=== PATIENT | female | born 1995 | race Caucasian/White ===

== ENCOUNTER 2016-04-21 00:29 | Emergency (ER) | payer OTHER ==
--- NOTE | 2016-04-21 03:30 | ED ORDER SUMMARY ---
..... Patient: BREANNA HARMON OrderSheet [facility] VisitID: [id number] [address] [place] [address] 20y, F Registration Date/Time: 04/21/2016 ORDER SHEET Weight: 62.5 kg (stated) Allergies: No Known Drug Allergy GENERAL ORDERS: UA-Culture if indicated Urgent (01:21 04/21/2016 Yanna Artis) (Ack 1:27 ALawrence ER Tech1) (1:33 DDavis R.N.) Urine Drug Screen Urgent (01:21 04/21/2016 Yanna Artis) (Ack 1:27 ALawrence ER Tech1) (1:33 DDavis R.N.) Urine Urgent (02:20 04/21/2016 Yanna Artis) (2:22 DDavis R.N.) (2:22 ALawrence ER Tech1) MEDICATION ORDERS: Zofran ODT PO 4 mg (NOW) (02:50 04/21/2016 Yanna Artis) (2:58 DDavis R.N.) IV FLUIDS: ORDER SHEET NOTES: [Electronically signed by Javi Mckenzie R.N. (03:40 04/21/2016)] [Electronically signed by Molina Jean Dr. (09:54 04/23/2016)] [Electronically locked/signed by Jaiv Mckenzie R.N. (03:40 04/21/2016)]
--- NOTE | 2016-04-21 03:30 | ED CLINICAL REPORT ---
Clinical Report - Physicians/Mid Levels [facility] [address] [place] [address] 04/21/2016 0:29 Patient: BREANNA HARMON Time Seen: 0215. Arrived- By private vehicle. Historian- patient. HISTORY OF PRESENT ILLNESS Chief Complaint: VOMITING. This started today and is still present. It was abrupt in onset and has been constant but is not gone now. No recent travel. She has had nausea and vomiting. No diarrhea, black stools, abdominal pain, flank pain or history of possible bad food exposure. Has not recently been camping or on antibiotics. She has had contact with a sick individual. (son). The illness is described as severe. (states she normally treats herself with a medication that also helps with anxiety and "itching". States she ran out.). Similar symptoms previously: Many times. Recent medical care: Not recently seen/assessed. REVIEW OF SYSTEMS No fever, cough, chest pain, difficulty breathing or skin rash. All systems otherwise negative, except as recorded above. PAST HISTORY See nurses notes. SOCIAL HISTORY Never smoker. No alcohol use or drug use. No recent travel. Is a local resident. ADDITIONAL NOTES The nursing notes have been reviewed. PHYSICAL EXAM Vital Signs: 04/21/2016 00:39 BP: 111/67. HR: 88. RR: 20. O2 saturation: 100%. Temp: 98.2 F. Pain level now: 5/10. Blood pressure normal. Oxygen saturation normal. Appearance: Alert. Oriented X3. No acute distress. Eyes: Pupils equal, round and reactive to light. Eyes normal inspection. ENT: Ears normal. Nose normal. Pharynx normal. Neck: Normal inspection. Neck supple. CVS: Normal heart rate and rhythm. Heart sounds normal. Pulses normal. Respiratory: No respiratory distress. Breath sounds normal. No rales, rhonchi or wheezes. Abdomen: Soft and nontender. Bowel sounds normal. No mass. Back: Normal inspection. Skin: Skin warm and dry. Normal skin color. No rash. Normal skin turgor. Extremities: Extremities exhibit normal ROM. No lower extremity edema. Neuro: Oriented X 3. No motor deficit. No sensory deficit. LABS, X-RAYS, AND EKG Laboratory Tests: UA-Culture if indicated: (TONYA: 04/21/2016 01:30) ( [facility] 04/21/2016 02:10) Final results Test Result Flag Units (Reference) URINE COLOR YELLOW URINE APPEARANCE CLEAR URINE GLUCOSE NEGATIVE (NEGATIVE) URINE BILIRUBIN NEGATIVE (NEGATIVE) URINE KETONE NEGATIVE (NEGATIVE) URINE SPECIFIC GRAVITY 1.010 (1.010-1.030) URINE PH 7.5 (5.0-8.0) URINE PROTEIN NEGATIVE (NEGATIVE) URINE UROBILINOGEN 0.2 EU/dL (0.2-1.0) URINE NITRITE NEGATIVE (NEGATIVE) URINE BLOOD NEGATIVE (NEGATIVE) URINE LEUK ESTERASE NEGATIVE (NEGATIVE) URINE RBC NONE SEEN rbc/hpf (0-1) URINE WBC 0-1 wbc/hpf (0-1) URINE EPITHELIAL CELLS 1-3 EPI/hpf (0-5) URINE BACTERIA NONE SEEN (NONE SEEN) URINE COMMENT CULT NOT INDICATED 1+ AMORPHOUS1+ MUCUSURINE CULTURES ARE SET-UP BASED ON THE FOLLOWING CRITERIA:POSITIVE NITRITEPOSITIVE LEUKOCYTE ESTERASEGREATER THAN 10 WHITE BLOOD CELLSMODERATE (2+) OR GREATER BACTERIA Urine: (TONYA: 04/21/2016 01:30) ( [facility] 04/21/2016 02:27) Final results Test Result Flag Units (Reference) URINE NEGATIVE Urine Drug Screen: (TONYA: 04/21/2016 01:30) ( [facility] 04/21/2016 02:16) Final results Test Result Flag Units (Reference) AMPHETAMINE/METHAMPHETAMINE NEGATIVE (NEGATIVE) BARBITURATE NEGATIVE (NEGATIVE) BENZODIAZEPINE NEGATIVE (NEGATIVE) CANNABINOID NEGATIVE (NEGATIVE) COCAINE NEGATIVE (NEGATIVE) ECSTASY NEGATIVE (NEGATIVE) METHADONE NEGATIVE (NEGATIVE) OPIATE NEGATIVE (NEGATIVE) The urine drug screen is a qualitative screening test fordrug overdose and abuse. All screen results should beconsidered as presumptive.Drugs screened for are as follows:BenzodiazepinesCocaineAmphetamines/MetamphetaminesTHC (Tetrahydrocannabinol)OpiatesBarbituratesEcstasyMethadonePositive results are unconfirmed. For confirmation, notifythe lab for the specimen to be sent to the reference lab.All confirmations must be performed by a differentmethodology.The ingestion of natural herbal and plant productscontaining Ephedra/Ephedra metabolites can produce in urineone or more substances capable of cross reacting withamphetamine/methamphetamine immunoassays. These testsprovide a preliminary result only. A more specificalternative chemical method must be used to obtain aconfirmed analytical result. . PROGRESS AND PROCEDURES Course of Care: the patient is a pleasant 20-year-old female presenting for evaluation of anxiety. Patient reports that she has a long history of anxiety and gets extremely nauseated when she has her anxiety. 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 "Patient states that when she starts to get her phobia, it worsens her nausea and starts a worsening cycle. Medications for the nausea have been ordered. Patient reports that she has had Zofran in the past however reports being resistant to it after long use. Patient states that she has not had for past several months and is willing to try again. The patient's workup was otherwise unremarkable. Urinalysis and test is negative. Nausea and vomiting have significantly improved after medications of been provided. Patient is a non-tender abdominal exam. Do not fill workup for her nausea is required at this time as patient is nontoxic and in no acute distress and has a reassuring abdominal exam. Additionally, do not feel patient has any signs of diabetic ketoacidosis as a urinalysis is negative for any ketones or glucose. Patient's symptoms of also been occurring for years now andis atypical presentation of her normal symptoms. Discussed with patient her workup, diagnosis, home care, follow-up, and return precautions. All questions have been answered. The patient expressed understanding of these instructions and was agreeable to them. Patient is stable for outpatient management. Do not feel further workup in the emergency department or admission to the hospital required at this time. Disposition: Discharged. Condition: good. CLINICAL IMPRESSION Vomiting with nausea. 04/21/2016 00:39 BP: 111/67. HR: 88. RR: 20. O2 saturation: 100%. Temp: 98.2 F. Pain level now: 5/10. Blood pressure normal. Oxygen saturation normal. INSTRUCTIONS Warnings: GENERAL WARNINGS: Return or contact your physician immediately if your condition worsens or changes unexpectedly, if not improving as expected, or if other problems arise. SPECIFICALLY, return if you develop pain, fever, vomiting, the inability to keep fluids down, blood in vomitus, blood in diarrhea, fainting or lightheadedness. Prescription Medications: Zofran (orally disintegrating tablets) 4 mg: take 1 orally every 8 hours as needed for nausea and vomiting. Dispense ten (10). No refill. Substitution is permissible. Hydroxyzine 50 mg: take 1 orally every 8 hours. Dispense thirty (30). No refill. (PRN nausea or anxiety) Follow-up: Return to the emergency department as needed. Follow up with your doctor in three days. Reason for referral: recheck today's concerns. Summary of care provided to patient via paper. Screening today revealed the patient's blood pressure to be in the normal range. The patient should follow up with a primary care provider for blood pressure management. Understanding of the discharge instructions verbalized by patient. Follow-up with: Jarod Chaudhari MD, [facility], , [facility], [address] [place] [address] Follow up in three days. Reason for referral: contact if you are unable to find a primary care doctor. Summary of care provided to patient via paper. (Electronically signed by Molina Jean Dr. 04/23/2016 9:54)
--- NOTE | 2016-04-21 03:30 | ED CLINICAL REPORT ---
Clinical Report - Physicians/Mid Levels [facility] [address] [place] [address] 04/21/2016 0:29 Patient: BREANNA HARMON Time Seen: 0215. Arrived- By private vehicle. Historian- patient. HISTORY OF PRESENT ILLNESS Chief Complaint: VOMITING. This started today and is still present. It was abrupt in onset and has been constant but is not gone now. No recent travel. She has had nausea and vomiting. No diarrhea, black stools, abdominal pain, flank pain or history of possible bad food exposure. Has not recently been camping or on antibiotics. She has had contact with a sick individual. (son). The illness is described as severe. (states she normally treats herself with a medication that also helps with anxiety and "itching". States she ran out.). Similar symptoms previously: Many times. Recent medical care: Not recently seen/assessed. REVIEW OF SYSTEMS No fever, cough, chest pain, difficulty breathing or skin rash. All systems otherwise negative, except as recorded above. PAST HISTORY See nurses notes. SOCIAL HISTORY Never smoker. No alcohol use or drug use. No recent travel. Is a local resident. ADDITIONAL NOTES The nursing notes have been reviewed. PHYSICAL EXAM Vital Signs: 04/21/2016 00:39 BP: 111/67. HR: 88. RR: 20. O2 saturation: 100%. Temp: 98.2 F. Pain level now: 5/10. Blood pressure normal. Oxygen saturation normal. Appearance: Alert. Oriented X3. No acute distress. Eyes: Pupils equal, round and reactive to light. Eyes normal inspection. ENT: Ears normal. Nose normal. Pharynx normal. Neck: Normal inspection. Neck supple. CVS: Normal heart rate and rhythm. Heart sounds normal. Pulses normal. Respiratory: No respiratory distress. Breath sounds normal. No rales, rhonchi or wheezes. Abdomen: Soft and nontender. Bowel sounds normal. No mass. Back: Normal inspection. Skin: Skin warm and dry. Normal skin color. No rash. Normal skin turgor. Extremities: Extremities exhibit normal ROM. No lower extremity edema. Neuro: Oriented X 3. No motor deficit. No sensory deficit. LABS, X-RAYS, AND EKG Laboratory Tests: UA-Culture if indicated: (TONYA: 04/21/2016 01:30) ( [facility] 04/21/2016 02:10) Final results Test Result Flag Units (Reference) URINE COLOR YELLOW URINE APPEARANCE CLEAR URINE GLUCOSE NEGATIVE (NEGATIVE) URINE BILIRUBIN NEGATIVE (NEGATIVE) URINE KETONE NEGATIVE (NEGATIVE) URINE SPECIFIC GRAVITY 1.010 (1.010-1.030) URINE PH 7.5 (5.0-8.0) URINE PROTEIN NEGATIVE (NEGATIVE) URINE UROBILINOGEN 0.2 EU/dL (0.2-1.0) URINE NITRITE NEGATIVE (NEGATIVE) URINE BLOOD NEGATIVE (NEGATIVE) URINE LEUK ESTERASE NEGATIVE (NEGATIVE) URINE RBC NONE SEEN rbc/hpf (0-1) URINE WBC 0-1 wbc/hpf (0-1) URINE EPITHELIAL CELLS 1-3 EPI/hpf (0-5) URINE BACTERIA NONE SEEN (NONE SEEN) URINE COMMENT CULT NOT INDICATED 1+ AMORPHOUS1+ MUCUSURINE CULTURES ARE SET-UP BASED ON THE FOLLOWING CRITERIA:POSITIVE NITRITEPOSITIVE LEUKOCYTE ESTERASEGREATER THAN 10 WHITE BLOOD CELLSMODERATE (2+) OR GREATER BACTERIA Urine: (TONYA: 04/21/2016 01:30) ( [facility] 04/21/2016 02:27) Final results Test Result Flag Units (Reference) URINE NEGATIVE Urine Drug Screen: (TONAY: 04/21/2016 01:30) ( [facility] 04/21/2016 02:16) Final results Test Result Flag Units (Reference) AMPHETAMINE/METHAMPHETAMINE NEGATIVE (NEGATIVE) BARBITURATE NEGATIVE (NEGATIVE) BENZODIAZEPINE NEGATIVE (NEGATIVE) CANNABINOID NEGATIVE (NEGATIVE) COCAINE NEGATIVE (NEGATIVE) ECSTASY NEGATIVE (NEGATIVE) METHADONE NEGATIVE (NEGATIVE) OPIATE NEGATIVE (NEGATIVE) The urine drug screen is a qualitative screening test fordrug overdose and abuse. All screen results should beconsidered as presumptive.Drugs screened for are as follows:BenzodiazepinesCocaineAmphetamines/MetamphetaminesTHC (Tetrahydrocannabinol)OpiatesBarbituratesEcstasyMethadonePositive results are unconfirmed. For confirmation, notifythe lab for the specimen to be sent to the reference lab.All confirmations must be performed by a differentmethodology.The ingestion of natural herbal and plant productscontaining Ephedra/Ephedra metabolites can produce in urineone or more substances capable of cross reacting withamphetamine/methamphetamine immunoassays. These testsprovide a preliminary result only. A more specificalternative chemical method must be used to obtain aconfirmed analytical result. . PROGRESS AND PROCEDURES Course of Care: the patient is a pleasant 20-year-old female presenting for evaluation of anxiety. Patient reports that she has a long history of anxiety and gets extremely nauseated when she has her anxiety. 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 "Patient states that when she starts to get her phobia, it worsens her nausea and starts a worsening cycle. Medications for the nausea have been ordered. Patient reports that she has had Zofran in the past however reports being resistant to it after long use. Patient states that she has not had for past several months and is willing to try again. The patient's workup was otherwise unremarkable. Urinalysis and test is negative. Nausea and vomiting have significantly improved after medications of been provided. Patient is a non-tender abdominal exam. Do not fill workup for her nausea is required at this time as patient is nontoxic and in no acute distress and has a reassuring abdominal exam. Additionally, do not feel patient has any signs of diabetic ketoacidosis as a urinalysis is negative for any ketones or glucose. Patient's symptoms of also been occurring for years now andis atypical presentation of her normal symptoms. Discussed with patient her workup, diagnosis, home care, follow-up, and return precautions. All questions have been answered. The patient expressed understanding of these instructions and was agreeable to them. Patient is stable for outpatient management. Do not feel further workup in the emergency department or admission to the hospital required at this time. Disposition: Discharged. Condition: good. CLINICAL IMPRESSION Vomiting with nausea. 04/21/2016 00:39 BP: 111/67. HR: 88. RR: 20. O2 saturation: 100%. Temp: 98.2 F. Pain level now: 5/10. Blood pressure normal. Oxygen saturation normal. INSTRUCTIONS Warnings: GENERAL WARNINGS: Return or contact your physician immediately if your condition worsens or changes unexpectedly, if not improving as expected, or if other problems arise. SPECIFICALLY, return if you develop pain, fever, vomiting, the inability to keep fluids down, blood in vomitus, blood in diarrhea, fainting or lightheadedness. Prescription Medications: Zofran (orally disintegrating tablets) 4 mg: take 1 orally every 8 hours as needed for nausea and vomiting. Dispense ten (10). No refill. Substitution is permissible. Hydroxyzine 50 mg: take 1 orally every 8 hours. Dispense thirty (30). No refill. (PRN nausea or anxiety) Follow-up: Return to the emergency department as needed. Follow up with your doctor in three days. Reason for referral: recheck today's concerns. Summary of care provided to patient via paper. Screening today revealed the patient's blood pressure to be in the normal range. The patient should follow up with a primary care provider for blood pressure management. Understanding of the discharge instructions verbalized by patient. Follow-up with: Jarod Chaudhari MD, [facility], , [facility], [address] [place] [address] Follow up in three days. Reason for referral: contact if you are unable to find a primary care doctor. Summary of care provided to patient via paper. (Electronically signed by Molina Jean Dr. 04/23/2016 9:54)
--- NOTE | 2016-04-21 03:30 | ED NURSING NOTES ---
Clinical Report - Nurses [facility] [place] [address] [place] [address] 04/21/2016 0:29 Patient: BREANNA HARMON TRIAGE Triage time 00:40. Acuity: LEVEL 4. Chief Complaint: ANXIETY. Alert. SEPSIS SCREEN: Sepsis Screen. Negative (no infection suspected/documented). ERICA COMA SCORE: [place] Coma Scale: 15- eyes open spontaneously (4); best verbal response- oriented x 4 (5); best motor response- obeys commands (6). --00:45 Arnold Chery R.N. 00:39 04/21/16. BP: 111/67. HR: 88. RR: 20 (unlabored). O2 saturation: 100% on room air. Temp: 98.2 F. Pain level now: 5/10. Additional comments: generalize body aches. --00:45 Arnold Chery R.N. Weight: 62.5 kg stated. Height/Length: 68 inches Per Patient. BMI: 21. --00:49 Arnold Chery R.N. Allergies No Known Drug Allergy. --00:41 Arnold Chery R.N. History Historian: patient. Onset: today. Onset. (3 hours ago). ( anxiety attack starting 3 hours ago, and states that it started because of nausea, she states having a fear of nausea). She has had anxiety. SOCIAL HX: Never smoker. No alcohol use or drug use. SELF HARM ASSESSMENT: A self harm assessment was performed. The patient answered "no" to the question "Have you recently felt down, depressed, or hopeless?", "Have you noticed less interest or pleasure in doing things?", "Do you have thoughts of harming or killing yourself?", "Are you here because you tried to hurt yourself?", "Have you ever tried to hurt yourself before today?", "Have you recently had thoughts about harming or killing others?" and "Do you have any dangerous items in your possession?". FALL RISK ASSESSMENT: Fall risk assessment completed. No fall risk identified. NUTRITIONAL RISK ASSESSMENT: The nutritional risk assessment revealed no deficiencies. LEARNING NEEDS ASSESSMENT: The learning needs assessment revealed no barriers. FUNCTIONAL ASSESSMENT: Functional assessment performed: independent with the activities of daily living. SKIN INTEGRITY ASSESSMENT: Skin integrity risk assessment completed. No skin integrity risk identified. --00:45 Arnold Chery R.N. PROBLEMS: Nausea. Anxiety Reaction. Gastroenteritis. Constipation. Gestational diabetes mellitus. Eustachian Tube Dysfunction. Viral Disease. . Sprain. Lymphadenitis. Tonsillitis. Immunizations. LNMP - Last Normal Menstrual Period. --00:42 Arnold Chery R.N. ADDITIONAL SURGERIES: Adenoidectomy. Tympanostomy Tubes. --00:42 Arnold Chery R.N. Interventions ID band on patient. To treatment room. --00:45 Arnold Chery R.N. PHYSICAL ASSESSMENT GENERAL / NEURO / PSYCH: Alert. Oriented X 4. Appears anxious. (cooperative, denies SI). Speech within normal limits. Good eye contact. Patient appears well-nourished and neat and clean. RESPIRATORY: Respirations not labored. SKIN: Skin intact. Skin is warm and dry. Skin color is within normal limits. --00:46 Arnold Chery R.N. NURSING PROGRESS NOTES Reassurance given. GENERAL / NEURO / PSYCH: Alert. Two patient identifiers checked. Call light placed in reach. Side rails up x 1. Bed placed in lowest position. Brakes of bed on. Patient ready for evaluation- chart flagged. Patient waiting for evaluation. --00:45 Arnold Chery R.N. 02:58 04/21/2016 Zofran ODT (Ondansetron) PO Oral Disintegrating Tablets 4 mg given. Allergies verified and confirmed 5 rights. --02:58 Arnold Chery R.N. ( Patient resting in bed, states "I'm trying to be alright."). --02:59 Arnold Chery R.N. DISPOSITION / DISCHARGE Departure time: 03:40. Condition at departure: improved. No learning barriers present. Discharge instructions provided and reviewed with the patient. Reviewed medication(s) side effects, precautions, dosing and course information. Prescription(s) given to the patient (zofran, hydroxyzine). Reviewed referrals (Dr. Chaudhari). Patient verbalized understanding. Written instructions provided in Vietnamese. The patient was discharged by the physician. She was discharged home and unaccompanied at time of discharge. She left the Emergency Department ambulatory and via private vehicle. Patient driving. --03:40 Javi Mckenzie R.N. 03:36 04/21/16. BP: 110/65. HR: 79. RR: 15. O2 saturation: 100%. Pain level now 0/10. --03:40 Javi Mckenzie R.N. Locked/Released at 04/21/2016 3:40 by Javi Mckenzie R.N.
--- NOTE | 2016-04-21 03:30 | ED ORDER SUMMARY ---
..... Patient: BREANNA HARMON OrderSheet [facility] VisitID: [id number] [address] [place] [address] 20y, F Registration Date/Time: 04/21/2016 ORDER SHEET Weight: 62.5 kg (stated) Allergies: No Known Drug Allergy GENERAL ORDERS: UA-Culture if indicated Urgent (01:21 04/21/2016 Yanna Artis) (Ack 1:27 ALawrence ER Tech1) (1:33 DDavis R.N.) Urine Drug Screen Urgent (01:21 04/21/2016 Yanna Artis) (Ack 1:27 ALawrence ER Tech1) (1:33 DDavis R.N.) Urine Urgent (02:20 04/21/2016 Yanna Artis) (2:22 DDavis R.N.) (2:22 ALawrence ER Tech1) MEDICATION ORDERS: Zofran ODT PO 4 mg (NOW) (02:50 04/21/2016 Yanna Artis) (2:58 DDavis R.N.) IV FLUIDS: ORDER SHEET NOTES: [Electronically signed by Javi Mckenzie R.N. (03:40 04/21/2016)] [Electronically signed by Molina Jean Dr. (09:54 04/23/2016)] [Electronically locked/signed by Javi Mckenzie R.N. (03:40 04/21/2016)]
--- NOTE | 2016-04-23 09:54 | ED DISCHARGE INSTRUCTIONS ---
Patient: BREANNA HARMON General Instructions [facility] VisitID: [id number] [place] [address] 20y, F Registration Date/Time: 04/21/2016 Vomiting with nausea. 04/21/2016 00:39 BP: 111/67. HR: 88. RR: 20. O2 saturation: 100%. Temp: 98.2 F. Pain level now: 5/10. Blood pressure normal. Oxygen saturation normal. INSTRUCTIONS Warnings: GENERAL WARNINGS: Return or contact your physician immediately if your condition worsens or changes unexpectedly, if not improving as expected, or if other problems arise. SPECIFICALLY, return if you develop pain, fever, vomiting, the inability to keep fluids down, blood in vomitus, blood in diarrhea, fainting or lightheadedness. Prescription Medications: Zofran (orally disintegrating tablets) 4 mg: take 1 orally every 8 hours as needed for nausea and vomiting. Dispense ten (10). No refill. Substitution is permissible. Hydroxyzine 50 mg: take 1 orally every 8 hours. Dispense thirty (30). No refill. (PRN nausea or anxiety) Follow-up: Return to the emergency department as needed. Follow up with your doctor in three days. Reason for referral: recheck today's concerns. Summary of care provided to patient via paper. Screening today revealed the patient's blood pressure to be in the normal range. The patient should follow up with a primary care provider for blood pressure management. Understanding of the discharge instructions verbalized by patient. Follow-up with: Jarod Chaudhari MD, [facility], , [facility], [address] [place] [address] Follow up in three days. Reason for referral: contact if you are unable to find a primary care doctor. Summary of care provided to patient via paper. ADDITIONAL INFORMATION Ondansetron Oral disintegrating tablet What is this medicine? ONDANSETRON (on MAYRA se tessa) is used to treat nausea and vomiting caused by chemotherapy. It is also used to prevent or treat nausea and vomiting after surgery. How should I use this medicine? These tablets are made to dissolve in the mouth. Do not try to push the tablet through the foil backing. With dry hands, peel away the foil backing and gently remove the tablet. Place the tablet in the mouth and allow it to dissolve, then swallow. While you may take these tablets with water, it is not necessary to do so. Talk to your thermograph operator regarding the use of this medicine in children. Special care may be needed. What side effects may I notice from receiving this medicine? Side effects that you should report to your doctor or health resident care associate as soon as possible: allergic reactions like skin rash, itching or hives, swelling of the face, lips, or tongue breathing problems dizziness fast or irregular heartbeat feeling faint or lightheaded, falls fever and chills swelling of the hands and feet tightness in the chest Side effects that usually do not require medical attention (report to your doctor or health resident care associate if they continue or are bothersome): constipation or diarrhea headache What may interact with this medicine? Do not take this medicine with any of the following medications: -apomorphine -cisapride -dofetilide -dronedarone -pimozide -thioridazine -ziprasidone This medicine may also interact with the following medications: -carbamazepine -phenytoin -rifampicin -tramadol -other medicines that prolong the QT interval (cause an abnormal heart rhythm) What if I miss a dose? If you miss a dose, take it as soon as you can. If it is almost time for your next dose, take only that dose. Do not take double or extra doses. Where should I keep my medicine? Keep out of the reach of children. Store between 2 and 30 degrees C (36 and 86 degrees F). Throw away any unused medicine after the expiration date. What should I tell my health care provider before I take this medicine? They need to know if you have any of these conditions: heart disease history of irregular heartbeat liver disease low levels of magnesium or potassium in the blood an unusual or allergic reaction to ondansetron, granisetron, other medicines, foods, dyes, or preservatives or trying to get breast-feeding What should I watch for while using this medicine? Check with your doctor or health resident care associate as soon as you can if you have any sign of an allergic reaction. Hydroxyzine Pamoate Oral capsule What is this medicine? HYDROXYZINE (tavon DROX i zeen) is an antihistamine. This medicine is used to treat allergy symptoms. It is also used to treat anxiety and tension. This medicine can be used with other medicines to induce sleep before surgery. How should I use this medicine? Take this medicine by mouth with a full glass of water. Follow the directions on the prescription label. You may take this medicine with food or on an empty stomach. Take your medicine at regular intervals. Do not take your medicine more often than directed. Talk to your thermograph operator regarding the use of this medicine in children. Special care may be needed. While this drug may be prescribed for children as young as 6 years of age for selected conditions, precautions do apply. Patients over 65 years old may have a stronger reaction and need a smaller dose. What side effects may I notice from receiving this medicine? Side effects that you should report to your doctor or health resident care associate as soon as possible: fast or irregular heartbeat difficulty passing urine seizures slurred speech or confusion tremor Side effects that usually do not require medical attention (report to your doctor or health resident care associate if they continue or are bothersome): constipation drowsiness fatigue headache stomach upset What may interact with this medicine? alcohol barbiturate medicines for sleep or seizures medicines for colds, allergies medicines for depression, anxiety, or emotional disturbances medicines for pain medicines for sleep muscle relaxants What if I miss a dose? If you miss a dose, take it as soon as you can. If it is almost time for your next dose, take only that dose. Do not take double or extra doses. Where should I keep my medicine? Keep out of the reach of children. Store at room temperature between 15 and 30 degrees C (59 and 86 degrees F). Keep container tightly closed. Throw away any unused medicine after the expiration date. What should I tell my health care provider before I take this medicine? They need to know if you have any of these conditions: any chronic illness difficulty passing urine glaucoma heart disease kidney disease liver disease lung disease an unusual or allergic reaction to hydroxyzine, cetirizine, other medicines, foods, dyes, or preservatives or trying to get breast-feeding What should I watch for while using this medicine? Tell your doctor or health resident care associate if your symptoms do not improve. You may get drowsy or dizzy. Do not drive, use machinery, or do anything that needs mental alertness until you know how this medicine affects you. Do not stand or sit up quickly, especially if you are an older patient. This reduces the risk of dizzy or fainting spells. Alcohol may interfere with the effect of this medicine. Avoid alcoholic drinks. Your mouth may get dry. Chewing sugarless gum or sucking hard candy, and drinking plenty of water may help. Contact your doctor if the problem does not go away or is severe. This medicine may cause dry eyes and blurred vision. If you wear contact lenses you may feel some discomfort. Lubricating drops may help. See your eye doctor if the problem does not go away or is severe. If you are receiving skin tests for allergies, tell your doctor you are using this medicine. You have been given the following additional information: Ondansetron Oral disintegrating tablet Hydroxyzine Pamoate Oral capsule (Electronically signed by Molina Jean Dr. 04/23/2016 9:54)
--- NOTE | 2016-04-23 09:54 | ED DISCHARGE INSTRUCTIONS ---
Patient: BREANNA HARMON General Instructions [facility] VisitID: [id number] [place] [address] 20y, F Registration Date/Time: 04/21/2016 Vomiting with nausea. 04/21/2016 00:39 BP: 111/67. HR: 88. RR: 20. O2 saturation: 100%. Temp: 98.2 F. Pain level now: 5/10. Blood pressure normal. Oxygen saturation normal. INSTRUCTIONS Warnings: GENERAL WARNINGS: Return or contact your physician immediately if your condition worsens or changes unexpectedly, if not improving as expected, or if other problems arise. SPECIFICALLY, return if you develop pain, fever, vomiting, the inability to keep fluids down, blood in vomitus, blood in diarrhea, fainting or lightheadedness. Prescription Medications: Zofran (orally disintegrating tablets) 4 mg: take 1 orally every 8 hours as needed for nausea and vomiting. Dispense ten (10). No refill. Substitution is permissible. Hydroxyzine 50 mg: take 1 orally every 8 hours. Dispense thirty (30). No refill. (PRN nausea or anxiety) Follow-up: Return to the emergency department as needed. Follow up with your doctor in three days. Reason for referral: recheck today's concerns. Summary of care provided to patient via paper. Screening today revealed the patient's blood pressure to be in the normal range. The patient should follow up with a primary care provider for blood pressure management. Understanding of the discharge instructions verbalized by patient. Follow-up with: Jarod Chaudhari MD, [facility], , [facility], [address] [place] [address] Follow up in three days. Reason for referral: contact if you are unable to find a primary care doctor. Summary of care provided to patient via paper. ADDITIONAL INFORMATION Ondansetron Oral disintegrating tablet What is this medicine? ONDANSETRON (on MAYRA se tessa) is used to treat nausea and vomiting caused by chemotherapy. It is also used to prevent or treat nausea and vomiting after surgery. How should I use this medicine? These tablets are made to dissolve in the mouth. Do not try to push the tablet through the foil backing. With dry hands, peel away the foil backing and gently remove the tablet. Place the tablet in the mouth and allow it to dissolve, then swallow. While you may take these tablets with water, it is not necessary to do so. Talk to your development chemist regarding the use of this medicine in children. Special care may be needed. What side effects may I notice from receiving this medicine? Side effects that you should report to your doctor or health senior resident care director as soon as possible: allergic reactions like skin rash, itching or hives, swelling of the face, lips, or tongue breathing problems dizziness fast or irregular heartbeat feeling faint or lightheaded, falls fever and chills swelling of the hands and feet tightness in the chest Side effects that usually do not require medical attention (report to your doctor or health senior resident care director if they continue or are bothersome): constipation or diarrhea headache What may interact with this medicine? Do not take this medicine with any of the following medications: -apomorphine -cisapride -dofetilide -dronedarone -pimozide -thioridazine -ziprasidone This medicine may also interact with the following medications: -carbamazepine -phenytoin -rifampicin -tramadol -other medicines that prolong the QT interval (cause an abnormal heart rhythm) What if I miss a dose? If you miss a dose, take it as soon as you can. If it is almost time for your next dose, take only that dose. Do not take double or extra doses. Where should I keep my medicine? Keep out of the reach of children. Store between 2 and 30 degrees C (36 and 86 degrees F). Throw away any unused medicine after the expiration date. What should I tell my health care provider before I take this medicine? They need to know if you have any of these conditions: heart disease history of irregular heartbeat liver disease low levels of magnesium or potassium in the blood an unusual or allergic reaction to ondansetron, granisetron, other medicines, foods, dyes, or preservatives or trying to get breast-feeding What should I watch for while using this medicine? Check with your doctor or health senior resident care director as soon as you can if you have any sign of an allergic reaction. Hydroxyzine Pamoate Oral capsule What is this medicine? HYDROXYZINE (tavon DROX i zeen) is an antihistamine. This medicine is used to treat allergy symptoms. It is also used to treat anxiety and tension. This medicine can be used with other medicines to induce sleep before surgery. How should I use this medicine? Take this medicine by mouth with a full glass of water. Follow the directions on the prescription label. You may take this medicine with food or on an empty stomach. Take your medicine at regular intervals. Do not take your medicine more often than directed. Talk to your development chemist regarding the use of this medicine in children. Special care may be needed. While this drug may be prescribed for children as young as 6 years of age for selected conditions, precautions do apply. Patients over 65 years old may have a stronger reaction and need a smaller dose. What side effects may I notice from receiving this medicine? Side effects that you should report to your doctor or health senior resident care director as soon as possible: fast or irregular heartbeat difficulty passing urine seizures slurred speech or confusion tremor Side effects that usually do not require medical attention (report to your doctor or health senior resident care director if they continue or are bothersome): constipation drowsiness fatigue headache stomach upset What may interact with this medicine? alcohol barbiturate medicines for sleep or seizures medicines for colds, allergies medicines for depression, anxiety, or emotional disturbances medicines for pain medicines for sleep muscle relaxants What if I miss a dose? If you miss a dose, take it as soon as you can. If it is almost time for your next dose, take only that dose. Do not take double or extra doses. Where should I keep my medicine? Keep out of the reach of children. Store at room temperature between 15 and 30 degrees C (59 and 86 degrees F). Keep container tightly closed. Throw away any unused medicine after the expiration date. What should I tell my health care provider before I take this medicine? They need to know if you have any of these conditions: any chronic illness difficulty passing urine glaucoma heart disease kidney disease liver disease lung disease an unusual or allergic reaction to hydroxyzine, cetirizine, other medicines, foods, dyes, or preservatives or trying to get breast-feeding What should I watch for while using this medicine? Tell your doctor or health senior resident care director if your symptoms do not improve. You may get drowsy or dizzy. Do not drive, use machinery, or do anything that needs mental alertness until you know how this medicine affects you. Do not stand or sit up quickly, especially if you are an older patient. This reduces the risk of dizzy or fainting spells. Alcohol may interfere with the effect of this medicine. Avoid alcoholic drinks. Your mouth may get dry. Chewing sugarless gum or sucking hard candy, and drinking plenty of water may help. Contact your doctor if the problem does not go away or is severe. This medicine may cause dry eyes and blurred vision. If you wear contact lenses you may feel some discomfort. Lubricating drops may help. See your eye doctor if the problem does not go away or is severe. If you are receiving skin tests for allergies, tell your doctor you are using this medicine. You have been given the following additional information: Ondansetron Oral disintegrating tablet Hydroxyzine Pamoate Oral capsule (Electronically signed by Molina Jean Dr. 04/23/2016 9:54)
--- NOTE | 2016-04-23 09:55 | ED MED RECONCILIATION SUMMARY ---
Patient: BREANNA HARMON Medication Reconciliation Report [facility] VisitID: [id number] [address] [place] [address] 20y, F Registration Date/Time: 04/21/2016 Weight: 62.5 kg Height/Length: 68 in. BMI: 21.0 ALLERGIES: No Known Drug Allergy The patient's Home Medications are listed below: Not obtained. The source(s) of the original Home Medication information: Not obtained. The following Medications were given to the patient in the Emergency Department: Zofran ODT [PO] PO 4 mg, administered: 04/21/2016 2:58:00 AM The following Medications were prescribed to the patient: Zofran (orally disintegrating tablets) 4 mg: take 1 orally every 8 hours as needed for nausea and vomiting. Dispense ten (10). No refill. Substitution is permissible. -- Molina Jean Dr. Hydroxyzine 50 mg: take 1 orally every 8 hours. Dispense thirty (30). No refill.(PRN nausea or anxiety) -- Molina Jean Dr.
--- NOTE | 2016-04-23 09:55 | ED MAR SUMMARY ---
..... Medication Administration Record [facility] [address] [place] [address] Patient: BREANNA HARMON Visit ID: [id number] 20y, F Weight: 62.5 kg Height/Length: 68 in BMI: 21 ALLERGIES: No Known Drug Allergy Given 02:58 04/21/2016 Arnold Chery R.N. Medication Administered: ZOFRAN ODT [PO] (ONDANSETRON), Dose: 4 mg Oral Disintegrating Tablets PO. Medication Ordered: Zofran ODT PO 4 mg (NOW).
--- NOTE | 2016-04-23 09:55 | ED MED RECONCILIATION SUMMARY ---
Patient: BREANNA HARMON Medication Reconciliation Report [facility] VisitID: [id number] [address] [place] [address] 20y, F Registration Date/Time: 04/21/2016 Weight: 62.5 kg Height/Length: 68 in. BMI: 21.0 ALLERGIES: No Known Drug Allergy The patient's Home Medications are listed below: Not obtained. The source(s) of the original Home Medication information: Not obtained. The following Medications were given to the patient in the Emergency Department: Zofran ODT [PO] PO 4 mg, administered: 04/21/2016 2:58:00 AM The following Medications were prescribed to the patient: Zofran (orally disintegrating tablets) 4 mg: take 1 orally every 8 hours as needed for nausea and vomiting. Dispense ten (10). No refill. Substitution is permissible. -- Molina Jean Dr. Hydroxyzine 50 mg: take 1 orally every 8 hours. Dispense thirty (30). No refill.(PRN nausea or anxiety) -- Molina Jean Dr.
--- NOTE | 2016-04-23 09:55 | ED MAR SUMMARY ---
..... Medication Administration Record [facility] [address] [place] [address] Patient: BREANNA HARMON Visit ID: [id number] 20y, F Weight: 62.5 kg Height/Length: 68 in BMI: 21 ALLERGIES: No Known Drug Allergy Given 02:58 04/21/2016 Arnold Cheyr R.N. Medication Administered: ZOFRAN ODT [PO] (ONDANSETRON), Dose: 4 mg Oral Disintegrating Tablets PO. Medication Ordered: Zofran ODT PO 4 mg (NOW).
== END 2016-04-21 03:30 | disposition home or self-care (01) ==
LOC: ED SRH 00:29
DX: R11.2 Nausea with vomiting, unspecified (principal)
CPT/HCPCS: 90004; 92760; 92761; 92762; 92763; 92764; 92765; 92766; 92767; 93070

== ENCOUNTER 2016-06-17 21:53 | Emergency (ER) | payer OTHER ==
--- NOTE | 2016-06-17 22:58 | ED NURSING NOTES ---
Clinical Report - Nurses [facility] [address] [place] [address] 06/17/2016 21:54 Patient: BREANNA HARMON TRIAGE Triage time 2200. Acuity: LEVEL 3. Chief Complaint: ANXIETY and (Panic). Alert. No acute distress. (Anxious, tearful). --22:12 Isa Tenorio 22:07 06/17/16. BP: 146/82. HR: 99. RR: 28. O2 saturation: 98%. Temp: 97.7 F. Pain level now 4/10. --22:12 Isa Tenorio. Weight: 65.7 kg. Height/Length: 68 inches. BMI: 22. --22:07 Isa Tenorio. Medications HydrOXYzine HCl Oral. --22:08 Isa Tenorio Mirena Intrauterine. --22:08 Isa Tenorio. Medication/allergy information source: the patient. --22:12 Isa Tenorio. Allergies No Known Drug Allergy. --22:08 Isa Tenorio. History Arrived by private vehicle. Historian: patient. Accompanied by (elias). Onset: today. 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 Onset. (1999). ( Pt sts she is having a severe panic attack, sudden onset, pt sts she has anxiety episodes 1-2 times a day and full panic 1-2 times a month, pt denies having a PCP, sts she got meds from a walk in clinic). ( Pt also c/o nausea and low mid abd pain). 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 PAST MEDICAL HX: Denies current . SOCIAL HX: Smoker- current status unknown. --22:12 Isa Tenorio. PROBLEMS: Vomiting. Nausea. Anxiety Reaction. Gastroenteritis. Constipation. Gestational diabetes mellitus. Eustachian Tube Dysfunction. Lymphadenitis. Tonsillitis. --22: Isa Tenorio. ADDITIONAL SURGERIES: Adenoidectomy. Tympanostomy Tubes. --22:09 Isa Tenorio. Interventions ID band on patient. To treatment room. --22:12 Isa Tenorio. PHYSICAL ASSESSMENT Ambulatory to room. GENERAL / NEURO / PSYCH: Alert. Oriented X 4. Appears anxious and in distress. Speech within normal limits. Appears anxious, restless, agitated and tearful. Good eye contact. Patient appears well-nourished and neat and clean. RESPIRATORY: Respirations not labored. Breath sounds within normal limits. CVS: Normal heart rate and rhythm. Capillary refill less than 2 seconds. GI / : Abdomen soft. Abdominal tenderness. Bowel sounds within normal limits. SKIN: Skin intact. Skin is warm and dry. Skin color is within normal limits. --22:13 Isa Tenorio. NURSING PROGRESS NOTES Patient gowned. Reassurance given. Bed placed in lowest position. Brakes of bed on. Patient ready for evaluation- chart flagged. --22:13 Isa Tenorio 22:15 06/17/2016 Zofran ODT (Ondansetron) PO 4 mg given. Allergies verified and confirmed 5 rights. --22:15 Isa Tenorio 22:20 06/17/2016 Ativan (LORazepam) PO 2 mg given. Allergies verified, confirmed 5 rights and sedative warning given to the patient's family. --22:20 Isa Tenorio 22:21 06/17/2016 Phenergan (Promethazine HCl) IM 25 mg given. Given in the right gluteus elizabeth. Allergies verified, confirmed 5 rights and sedative warning given to the patient's family. --22:21 Isa Tenorio Reassessment after medication administered. She is calm and resting quietly and has had no adverse reaction. Overall patient status is improved- she states feels better. --23:10 Isa Tenorio. DISPOSITION / DISCHARGE Departure time: 2309. Condition at departure: improved and stable. No learning barriers present. Discharge instructions provided and reviewed with the patient and spouse. Reviewed medication(s). Patient and spouse verbalized understanding. Written instructions provided in Kinyarwanda. The patient was discharged by the physician assistant strength coach. She was discharged home and accompanied by spouse. She left the Emergency Department ambulatory and via private vehicle. Spouse driving. --23:11 Isa Tenorio 23:10 06/17/16. BP: 110/70. HR: 77. RR: 16. O2 saturation: 100%. --23:11 Isa Tenorio. Locked/Released at 06/17/2016 23:11 by Isa Tenorio,
--- NOTE | 2016-06-17 22:58 | ED ORDER SUMMARY ---
..... Patient: BREANNA HARMON OrderSheet [facility] VisitID: [id number] [address] [place] [address] 20y, F Registration Date/Time: 06/17/2016 ORDER SHEET Weight: 65.7 kg Allergies: No Known Drug Allergy GENERAL ORDERS: MEDICATION ORDERS: Phenergan IM 25 mg (HIGH ALERT MEDICATION, NOW) (22:13 06/17/2016 Marvaleeverette P.A.-C) (Ack 22:14 [facility] Ativan PO 2 mg (HIGH ALERT MEDICATION) (22:06/17/2016 Leeann P.A.-C) (Ack 22:[facility] ([facility] Zofran ODT PO 4 mg (NOW) (22:14 06/17/2016 Prabhakar per protocol) (22:[facility] IV FLUIDS: ORDER SHEET NOTES: [Electronically signed by Isa Tenorio (23:11 06/17/2016)] [Electronically signed by Danii SheaARebekah-Ashly (23:52 06/17/2016)] [Electronically locked/signed by Isa Tenorio (23:11 06/17/2016)]
--- NOTE | 2016-06-17 22:58 | ED CLINICAL REPORT ---
Clinical Report - Physicians/Mid Levels [facility] [address] [place] [address] 06/17/2016 21:54 Patient: BREANNA HARMON Time Seen: 23:39 Jun 17 2016. Arrived- By private vehicle. Historian- patient (SO). HISTORY OF PRESENT ILLNESS Chief Complaint: PALPITATIONS. This started just prior to arrival and is still present. ( Hyperventilating, and difficulty with breathing and gassy for air, paresthesias 2 hours prior to arrival. [facility] Patient with history of similar events. Previously was in counseling while in high school, however has not been seen by primary care provider or psychiatrist, as she has a long hours and hasn't been only seen at urgent care clinics. Patient has an IUD present.). REVIEW OF SYSTEMS No fever, chills, cough, sore throat or black stools. All systems otherwise negative, except as recorded above. SOCIAL HISTORY Alcohol use. No drug use. ADDITIONAL NOTES The nursing notes have been reviewed. PHYSICAL EXAM Vital Signs: 06/17/2016 22:07 BP: 146/82. HR: 99. RR: 28. O2 saturation: 98%. Temp: 97.7 F. Appearance: Alert. Anxious. Patient in apparent distress. Eyes: Eyes normal inspection. ENT: Ears normal. Nose normal. Neck: Normal inspection. No meningeal signs. CVS: Normal heart rate and rhythm. Respiratory: No respiratory distress. Breath sounds normal. Chest nontender. Skin: Skin warm. Normal skin color. Neuro: Oriented X 3. PROGRESS AND PROCEDURES Course of Care: Patient in the emergency department with signs of acute hyperventilation syndrome, panic attack, with history of similar. Medications now asleep resting comfortably . URGED for her to f/u and establish pcp. NO SOB/ no chest pain. 06/17/2016 23:10 BP: 110/70. HR: 77. RR: 16. O2 saturation: 100%. Patient is stable. Patient/family counseled. Disposition: Discharged. Condition: good. CLINICAL IMPRESSION Anxiety reaction. INSTRUCTIONS Avoid stimulants (such as cigarettes, coffee, cold medicines, sinus medicines, street drugs). ([facility]: Address: [address] [place] [address] [facility] Address: [address] [place] [address] ). Warnings: SEDATIVE MEDICATION: You were given sedative medication during your visit. Do not drive or operate dangerous machinery for 6 hours. Prescription Medications: Zofran (orally disintegrating tablets) 4 mg: take 1 orally every 6 hours for 3 days as needed for nausea. Dispense ten (10). No refill. Substitution is permissible. Ativan take 1 orally every 8 hours for 3 days as needed for anxiety. No refill. Substitution is permissible. (#9) Follow-up: Follow up with your doctor please establish Primary Care in three days. Understanding of the discharge instructions verbalized by patient and family. (Electronically signed by Danii Shea P.A.-C 06/17/2016 23:52)
--- NOTE | 2016-06-17 22:58 | ED ORDER SUMMARY ---
..... Patient: BREANNA HARMON OrderSheet [facility] VisitID: [id number] [address] [place] [address] 20y, F Registration Date/Time: 06/17/2016 ORDER SHEET Weight: 65.7 kg Allergies: No Known Drug Allergy GENERAL ORDERS: MEDICATION ORDERS: Phenergan IM 25 mg (HIGH ALERT MEDICATION, NOW) (22:13 06/17/2016 Marvaleeverette P.A.-C) (Ack 22:14 [facility]) (22:21 [facility] Ativan PO 2 mg (HIGH ALERT MEDICATION) (22:06/17/2016 Leeann P.A.-C) ([facility]ck [facility] ([facility] Zofran ODT PO 4 mg (NOW) (22:14 06/17/2016 Prabhakar per protocol) (22:15 [facility]) IV FLUIDS: ORDER SHEET NOTES: [Electronically signed by Isa Tenorio (23:11 06/17/2016)] [Electronically signed by Danii SheaARebekah-Ashly (23:52 06/17/2016)] [Electronically locked/signed by Isa Tenorio (23:11 06/17/2016)]
--- NOTE | 2016-06-17 22:58 | ED CLINICAL REPORT ---
Clinical Report - Physicians/Mid Levels [facility] [address] [place] [address] 06/17/2016 21:54 Patient: BREANNA HARMON Time Seen: 23:39 Jun 17 2016. Arrived- By private vehicle. Historian- patient (SO). HISTORY OF PRESENT ILLNESS Chief Complaint: PALPITATIONS. This started just prior to arrival and is still present. ( Hyperventilating, and difficulty with breathing and gassy for air, paresthesias 2 hours prior to arrival. [facility] Patient with history of similar events. Previously was in counseling while in high school, however has not been seen by primary care provider or psychiatrist, as she has a long hours and hasn't been only seen at urgent care clinics. Patient has an IUD present.). REVIEW OF SYSTEMS No fever, chills, cough, sore throat or black stools. All systems otherwise negative, except as recorded above. SOCIAL HISTORY Alcohol use. No drug use. ADDITIONAL NOTES The nursing notes have been reviewed. PHYSICAL EXAM Vital Signs: 06/17/2016 22:07 BP: 146/82. HR: 99. RR: 28. O2 saturation: 98%. Temp: 97.7 F. Appearance: Alert. Anxious. Patient in apparent distress. Eyes: Eyes normal inspection. ENT: Ears normal. Nose normal. Neck: Normal inspection. No meningeal signs. CVS: Normal heart rate and rhythm. Respiratory: No respiratory distress. Breath sounds normal. Chest nontender. Skin: Skin warm. Normal skin color. Neuro: Oriented X 3. PROGRESS AND PROCEDURES Course of Care: Patient in the emergency department with signs of acute hyperventilation syndrome, panic attack, with history of similar. Medications now asleep resting comfortably . URGED for her to f/u and establish pcp. NO SOB/ no chest pain. 06/17/2016 23:10 BP: 110/70. HR: 77. RR: 16. O2 saturation: 100%. Patient is stable. Patient/family counseled. Disposition: Discharged. Condition: good. CLINICAL IMPRESSION Anxiety reaction. INSTRUCTIONS Avoid stimulants (such as cigarettes, coffee, cold medicines, sinus medicines, street drugs). ([facility]: Address: [address] [facility] [place] [address] [facility] Address: [address] [place] [address] ). Warnings: SEDATIVE MEDICATION: You were given sedative medication during your visit. Do not drive or operate dangerous machinery for 6 hours. Prescription Medications: Zofran (orally disintegrating tablets) 4 mg: take 1 orally every 6 hours for 3 days as needed for nausea. Dispense ten (10). No refill. Substitution is permissible. Ativan take 1 orally every 8 hours for 3 days as needed for anxiety. No refill. Substitution is permissible. (#9) Follow-up: Follow up with your doctor please establish Primary Care in three days. Understanding of the discharge instructions verbalized by patient and family. (Electronically signed by Danii Shea P.A.-C 06/17/2016 23:52)
--- NOTE | 2016-06-17 22:58 | ED NURSING NOTES ---
Clinical Report - [facility] [address] [place] [address] 06/17/2016 21:54 Patient: BREANNA HARMON TRIAGE Triage time 2200. Acuity: LEVEL 3. Chief Complaint: ANXIETY and (Panic). Alert. No acute distress. (Anxious, tearful). --22:12 Isa Tenorio 22:07 06/17/16. BP: 146/82. HR: 99. RR: 28. O2 saturation: 98%. Temp: 97.7 F. Pain level now 4/10. --22:12 Isa Tenorio. Weight: 65.7 kg. Height/Length: 68 inches. BMI: 22. --22:07 Isa Tenorio. Medications HydrOXYzine HCl Oral. --22:08 Isa Tenorio Mirena Intrauterine. --22:08 Isa Tenorio. Medication/allergy information source: the patient. --22:12 Isa Tenorio. Allergies No Known Drug Allergy. --22:08 Isa Tenorio. History Arrived by private vehicle. Historian: patient. Accompanied by (elias). Onset: today. This did not begin just DIRECTOR DISTRIBUTION. Onset. (1999). ( Pt sts she is having a severe panic attack, sudden onset, pt sts she has anxiety episodes 1-2 times a day and full panic 1-2 times a month, pt denies having a PCP, sts she got meds from a walk in clinic). ( Pt also c/o nausea and low mid abd pain). Treatment DIRECTOR DISTRIBUTION: (hydroxyzine). PAST MEDICAL HX: Denies current . SOCIAL HX: Smoker- current status unknown. --22:12 Isa Tenorio. PROBLEMS: Vomiting. Nausea. Anxiety Reaction. Gastroenteritis. Constipation. Gestational diabetes mellitus. Eustachian Tube Dysfunction. Lymphadenitis. Tonsillitis. --22: Isa Tenorio. ADDITIONAL SURGERIES: Adenoidectomy. Tympanostomy Tubes. --22:09 Isa Tenorio. Interventions ID band on patient. To treatment room. --22:12 Isa Tenorio. PHYSICAL ASSESSMENT Ambulatory to room. GENERAL / NEURO / PSYCH: Alert. Oriented X 4. Appears anxious and in distress. Speech within normal limits. Appears anxious, restless, agitated and tearful. Good eye contact. Patient appears well-nourished and neat and clean. RESPIRATORY: Respirations not labored. Breath sounds within normal limits. CVS: Normal heart rate and rhythm. Capillary refill less than 2 seconds. GI / : Abdomen soft. Abdominal tenderness. Bowel sounds within normal limits. SKIN: Skin intact. Skin is warm and dry. Skin color is within normal limits. --22:13 Isa Tenorio. NURSING PROGRESS NOTES Patient gowned. Reassurance given. Bed placed in lowest position. Brakes of bed on. Patient ready for evaluation- chart flagged. --22:13 Isa Tenorio 22:15 06/17/2016 Zofran ODT (Ondansetron) PO 4 mg given. Allergies verified and confirmed 5 rights. --22:15 Isa Tenorio 22:20 06/17/2016 Ativan (LORazepam) PO 2 mg given. Allergies verified, confirmed 5 rights and sedative warning given to the patient's family. --22:20 Isa Tenorio 22:21 06/17/2016 Phenergan (Promethazine HCl) IM 25 mg given. Given in the right gluteus elizabeth. Allergies verified, confirmed 5 rights and sedative warning given to the patient's family. --22:21 Isa Tenorio Reassessment after medication administered. She is calm and resting quietly and has had no adverse reaction. Overall patient status is improved- she states feels better. --23:10 Isa Tenorio. DISPOSITION / DISCHARGE Departure time: 2309. Condition at departure: improved and stable. No learning barriers present. Discharge instructions provided and reviewed with the patient and spouse. Reviewed medication(s). Patient and spouse verbalized understanding. Written instructions provided in Syriac. The patient was discharged by the physician assistant women's tennis coach. She was discharged home and accompanied by spouse. She left the Emergency Department ambulatory and via private vehicle. Spouse driving. --23:11 Isa Tenorio 23:10 06/17/16. BP: 110/70. HR: 77. RR: 16. O2 saturation: 100%. --23:11 Isa Tenorio. Locked/Released at 06/17/2016 23:11 by Isa Tenorio,
--- NOTE | 2016-06-17 23:52 | ED MAR SUMMARY ---
..... Medication Administration Record [facility] [address] [place] [address] Patient: BREANNA HARMON Visit ID: [id number] 20y, F Weight: 65.7 kg Height/Length: 68 in BMI: 22 ALLERGIES: No Known Drug Allergy Given 22:15 06/17/2016 Isa Tenorio, Medication Administered: ZOFRAN ODT [PO] (ONDANSETRON), Dose: 4 mg PO. Medication Ordered: Zofran ODT PO 4 mg (NOW). Given 22:06/17/2016 Isa Tenorio, Medication Administered: ATIVAN [PO] (LORAZEPAM), Dose: 2 mg PO. Medication Ordered: Ativan PO 2 mg (HIGH ALERT MEDICATION). Given 22:06/17/2016 Isa Tenorio, Medication Administered: PHENERGAN [IM] (PROMETHAZINE HCL), Dose: 25 mg IM. Medication Ordered: Phenergan IM 25 mg (HIGH ALERT MEDICATION, NOW).
--- NOTE | 2016-06-17 23:52 | ED MED RECONCILIATION SUMMARY ---
Patient: BREANNA HARMON Medication Reconciliation Report [facility] VisitID: [id number] [address] [place] [address] 20y, F Registration Date/Time: 06/17/2016 Weight: 65.7 kg Height/Length: 68 in. BMI: 22.0 ALLERGIES: No Known Drug Allergy The patient's Home Medications are listed below: THE FOLLOWING MEDICATIONS NEED TO BE RECONCILED: HydrOXYzine HCl Oral Mirena Intrauterine The source(s) of the original Home Medication information: patient The following Medications were given to the patient in the Emergency Department: Zofran ODT [PO] PO 4 mg, administered: 06/17/2016 10:15:00 PM Ativan [PO] PO 2 mg, administered: 06/17/2016 10:20:00 PM Phenergan [IM] IM 25 mg, administered: 06/17/2016 10:21:00 PM The following Medications were prescribed to the patient: Zofran (orally disintegrating tablets) 4 mg: take 1 orally every 6 hours for 3 days as needed for nausea. Dispense ten (10). No refill. Substitution is permissible. -- Danii Shea, P.A.-C Ativan take 1 orally every 8 hours for 3 days as needed for anxiety. No refill. Substitution is permissible.(#9) -- Danii Shea, P.A.-C
--- NOTE | 2016-06-17 23:52 | ED MED RECONCILIATION SUMMARY ---
Patient: BREANNA HARMON Medication Reconciliation Report [facility] VisitID: [id number] [address] [place] [address] 20y, F Registration Date/Time: 06/17/2016 Weight: 65.7 kg Height/Length: 68 in. BMI: 22.0 ALLERGIES: No Known Drug Allergy The patient's Home Medications are listed below: THE FOLLOWING MEDICATIONS NEED TO BE RECONCILED: HydrOXYzine HCl Oral Mirena Intrauterine The source(s) of the original Home Medication information: patient The following Medications were given to the patient in the Emergency Department: Zofran ODT [PO] PO 4 mg, administered: 06/17/2016 10:15:00 PM Ativan [PO] PO 2 mg, administered: 06/17/2016 10:20:00 PM Phenergan [IM] IM 25 mg, administered: 06/17/2016 10:21:00 PM The following Medications were prescribed to the patient: Zofran (orally disintegrating tablets) 4 mg: take 1 orally every 6 hours for 3 days as needed for nausea. Dispense ten (10). No refill. Substitution is permissible. -- Danii Shea, P.A.-C Ativan take 1 orally every 8 hours for 3 days as needed for anxiety. No refill. Substitution is permissible.(#9) -- Danii Shea, P.A.-C
--- NOTE | 2016-06-17 23:52 | ED MAR SUMMARY ---
..... Medication Administration Record [facility] [address] [place] [address] Patient: BREANNA HARMON Visit ID: [id number] 20y, F Weight: 65.7 kg Height/Length: 68 in BMI: 22 ALLERGIES: No Known Drug Allergy Given 22:15 06/17/2016 Isa Tenorio, Medication Administered: ZOFRAN ODT [PO] (ONDANSETRON), Dose: 4 mg PO. Medication Ordered: Zofran ODT PO 4 mg (NOW). Given 22:06/17/2016 Isa Tenorio, Medication Administered: ATIVAN [PO] (LORAZEPAM), Dose: 2 mg PO. Medication Ordered: Ativan PO 2 mg (HIGH ALERT MEDICATION). Given 22:06/17/2016 Isa Tenorio, Medication Administered: PHENERGAN [IM] (PROMETHAZINE HCL), Dose: 25 mg IM. Medication Ordered: Phenergan IM 25 mg (HIGH ALERT MEDICATION, NOW).
--- NOTE | 2016-06-17 23:52 | ED DISCHARGE INSTRUCTIONS ---
Patient: BREANNA HARMON General Instructions [facility] VisitID: [id number] [address] [place] [address] 20y, F Registration Date/Time: 06/17/2016 Anxiety reaction. INSTRUCTIONS Avoid stimulants (such as cigarettes, coffee, cold medicines, sinus medicines, street drugs). ([facility]: Address: [address] [place] [address] Formerly [facility]: Address: [address] [place] [address] ). Warnings: SEDATIVE MEDICATION: You were given sedative medication during your visit. Do not drive or operate dangerous machinery for 6 hours. Prescription Medications: Zofran (orally disintegrating tablets) 4 mg: take 1 orally every 6 hours for 3 days as needed for nausea. Dispense ten (10). No refill. Substitution is permissible. Ativan take 1 orally every 8 hours for 3 days as needed for anxiety. No refill. Substitution is permissible. (#9) Follow-up: Follow up with your doctor please establish Primary Care in three days. Understanding of the discharge instructions verbalized by patient and family. ADDITIONAL INFORMATION Stress Reaction Anxiety is the feeling we all get when we think something bad might happen. It is a normal response to stress and usually causes only a mild reaction. When anxiety becomes more severe, emotions may interfere with daily life. In some cases, you may not even be aware of what it is youre anxious about! During an anxiety reaction, you may feel like you are helpless, nervous, depressed or irritable. Your body may show signs of anxiety in many ways. You may experience dry mouth, shakiness, dizziness, weakness, trouble breathing, chest pressure, headache, nausea, diarrhea, tiredness, inability to sleep or sexual problems. Home Care: 1) Try to locate the sources of stress in your life. They may not be obvious! These may include: -- Daily hassles of life which pile up (traffic jams, missed appointments, car troubles, etc.) -- Major life changes, both good (new baby, job promotion) and bad (loss of job, loss of loved one) -- Overload: feeling that you have too many responsibilities and can't take care of all of them at once -- Feeling helpless, feeling that your problems are beyond what youre able to solve 2) Notice how your body reacts to stress. Learn to listen to your body signals. This will help you take action before the stress becomes severe. 3) When you can, do something about the source of your stress. (Avoid hassles, limit the amount of change that happens in your life at one time and take a break when you feel overloaded). 4) Unfortunately, many stressful situations cannot be avoided. It is necessary to learn HOW TO MANAGE STRESS better. There are many proven methods that will reduce your anxiety. These include simple things like exercise, good nutrition and adequate rest. Also, there are certain techniques that are helpful: relaxation and breathing exercises, visualization, biofeedback and meditation. For more information about this, consult your doctor or go to a local bookstore and review the many books and tapes available on this subject. Follow Up If you feel that your anxiety is not responding to self-help measures, contact your doctor or make an appointment with a counselor. Get Prompt Medical Attention if any of the following occur: -- Your symptoms get worse -- Chest pain or trouble breathing -- Severe headache not relieved by rest and mild pain reliever -- Rapid or irregular heartbeat, fainting Panic Attack A panic attack is an extreme fear reaction that comes on for no apparent reason. Symptoms may include pounding or racing heartbeat, shortness of breath, dizziness, weakness and sweating. There is usually a fear that something terrible will happen or that you may . The attack may last a few minutes up to a few hours. Between attacks things will seem quite normal. This condition has a psychological cause and can be treated with the help of a therapist or psychiatrist. Medication is often used and can be very helpful for this problem. Home Care: Try to identify the sources of stress in your life. It may not be obvious! These may include: Daily hassles of life which pile up (traffic jams, missed appointments, car troubles, etc.). Major life changes, both good (new baby, job promotion) and bad (loss of job, loss of loved one). Overload: feeling that you have too many responsibilities and can't take care of everything at once. Helplessness: feeling like your problems are too much for you to handle. Notice how your body reacts to stress. Learn to listen to your body signals so that you can take action before the stress becomes severe. When possible, AVOID or REDUCE THE CAUSE OF STRESS. Avoid hassles, limit the amount of change that is happening in your life at one time or take a break when you feel overloaded. Unfortunately, many stressful situations cannot be avoided. Therefore, it is necessary to LEARN HOW TO MANAGE STRESS better. There are many proven methods that work and will reduce your anxiety. These include simple things like exercise, good nutrition and adequate rest. Also, there are certain techniques that are helpful: relaxation and breathing exercises, visualization, biofeedback, meditation or simply taking some time-out to clear your mind. For more information about this, consult your doctor or go to a local bookstore and review the many books and tapes available on this subject. Follow Up with your doctor or a therapist as advised. Get Prompt Medical Attention if any of the following occur: Worsening of your symptoms to the point of feeling [id number] A change in the type of pain: if it feels different, becomes more severe, lasts longer, or begins to spread into your shoulder, arm, neck, jaw or back Shortness of breath or increased pain with breathing Increasing feeling of weakness or dizziness Fainting Cough with dark colored sputum (phlegm) or blood Fever of 100.4F (38C) or higher, or as directed by your healthcare provider Swelling, pain or redness in one leg Hyperventilation Syndrome Hyperventilation Syndrome is a condition in which you lose control of your breathing. You may find yourself breathing too fast and/or too deep. This can be triggered by pain, anxiety and emotional stress. If hyperventilation continues for more than a few minutes, it can lead to a number of frightening symptoms, such as: Numbness and tingling of the hands, feet and face Clenching of the fingers or toes Dizziness Feeling like you cannot get enough air Chest pains Fainting or feeling like you are going to faint Once these symptoms begin, it is often hard to stop them because they lead to a cycle of more anxiety and more hyperventilation. It is important to understand that this is not a life-threatening condition and it will pass once you are able to relax. Relaxation and stress management methods can be learned and practiced in advance. These can help in the event of a future attack. Home Care: 1) Rest today until feeling back to normal. 2) If symptoms return: Sit or lie down. Remember that what is happening to you is temporary and will pass. Use the relaxation methods you have learned. It is no longer recommended to breathe into a paper bag. Follow Up with your doctor or as directed by our staff if symptoms recur. Get Prompt Medical Attention if any of the following occur: Increasing shortness of breath Fever of 100.0 F (38 C) or higher, or as directed by your healthcare provider Coughing up blood Chest pain that is made worse with each breath Redness, pain or swelling of the leg Ringing in your ears, Severe headache Weakness or fainting Ondansetron Oral disintegrating tablet What is this medicine? ONDANSETRON (on MAYRA se tessa) is used to treat nausea and vomiting caused by chemotherapy. It is also used to prevent or treat nausea and vomiting after surgery. How should I use this medicine? These tablets are made to dissolve in the mouth. Do not try to push the tablet through the foil backing. With dry hands, peel away the foil backing and gently remove the tablet. Place the tablet in the mouth and allow it to dissolve, then swallow. While you may take these tablets with water, it is not necessary to do so. Talk to your valve tester regarding the use of this medicine in children. Special care may be needed. What side effects may I notice from receiving this medicine? Side effects that you should report to your doctor or health child care provider as soon as possible: allergic reactions like skin rash, itching or hives, swelling of the face, lips, or tongue breathing problems dizziness fast or irregular heartbeat feeling faint or lightheaded, falls fever and chills swelling of the hands and feet tightness in the chest Side effects that usually do not require medical attention (report to your doctor or health child care provider if they continue or are bothersome): constipation or diarrhea headache What may interact with this medicine? Do not take this medicine with any of the following medications: -apomorphine -cisapride -dofetilide -dronedarone -pimozide -thioridazine -ziprasidone This medicine may also interact with the following medications: -carbamazepine -phenytoin -rifampicin -tramadol -other medicines that prolong the QT interval (cause an abnormal heart rhythm) What if I miss a dose? If you miss a dose, take it as soon as you can. If it is almost time for your next dose, take only that dose. Do not take double or extra doses. Where should I keep my medicine? Keep out of the reach of children. Store between 2 and 30 degrees C (36 and 86 degrees F). Throw away any unused medicine after the expiration date. What should I tell my health care provider before I take this medicine? They need to know if you have any of these conditions: heart disease history of irregular heartbeat liver disease low levels of magnesium or potassium in the blood an unusual or allergic reaction to ondansetron, granisetron, other medicines, foods, dyes, or preservatives or trying to get breast-feeding What should I watch for while using this medicine? Check with your doctor or health child care provider as soon as you can if you have any sign of an allergic reaction. Lorazepam Oral tablet What is this medicine? LORAZEPAM (denis A ze nely) is a benzodiazepine. It is used to treat anxiety. How should I use this medicine? Take this medicine by mouth with a glass of water. Follow the directions on the prescription label. If it upsets your stomach, take it with food or milk. Take your medicine at regular intervals. Do not take it more often than directed. Do not stop taking except on the advice of your doctor or health child care provider. Talk to your valve tester regarding the use of this medicine in children. Special care may be needed. What side effects may I notice from receiving this medicine? Side effects that you should report to your doctor or health child care provider as soon as possible: changes in vision confusion depression mood changes, excitability or aggressive behavior movement difficulty, staggering or jerky movements muscle cramps restlessness weakness or tiredness Side effects that usually do not require medical attention (report to your doctor or health child care provider if they continue or are bothersome): constipation or diarrhea difficulty sleeping, nightmares dizziness, drowsiness headache nausea, vomiting What may interact with this medicine? barbiturate medicines for inducing sleep or treating seizures, like phenobarbital clozapine medicines for depression, mental problems or psychiatric disturbances medicines for sleep phenytoin probenecid theophylline valproic acid What if I miss a dose? If you miss a dose, take it as soon as you can. If it is almost time for your next dose, take only that dose. Do not take double or extra doses. Where should I keep my medicine? Keep out of the reach of children. This medicine can be abused. Keep your medicine in a safe place to protect it from theft. Do not share this medicine with anyone. Selling or giving away this medicine is dangerous and against the law. Store at room temperature between 20 and 25 degrees C (68 and 77 degrees F). Protect from light. Keep container tightly closed. Throw away any unused medicine after the expiration date. What should I tell my health care provider before I take this medicine? They need to know if you have any of these conditions: alcohol or drug abuse problem bipolar disorder, depression, psychosis or other mental health condition glaucoma kidney or liver disease lung disease or breathing difficulties myasthenia gravis Parkinson's disease seizures or a history of seizures suicidal thoughts an unusual or allergic reaction to lorazepam, other benzodiazepines, foods, dyes, or preservatives or trying to get breast-feeding What should I watch for while using this medicine? Visit your doctor or health child care provider for regular checks on your progress. Your body may become dependent on this medicine, ask your doctor or health child care provider if you still need to take it. However, if you have been taking this medicine regularly for some time, do not suddenly stop taking it. You must gradually reduce the dose or you may get severe side effects. Ask your doctor or health child care provider for advice before increasing or decreasing the dose. Even after you stop taking this medicine it can still affect your body for several days. You may get drowsy or dizzy. Do not drive, use machinery, or do anything that needs mental alertness until you know how this medicine affects you. To reduce the risk of dizzy and fainting spells, do not stand or sit up quickly, especially if you are an older patient. Alcohol may increase dizziness and drowsiness. Avoid alcoholic drinks. Do not treat yourself for coughs, colds or allergies without asking your doctor or health child care provider for advice. Some ingredients can increase possible side effects. You have been given the following additional information: Anxiety Reaction Panic Attack Hyperventilation Syndrome Ondansetron Oral disintegrating tablet Lorazepam Oral tablet (Electronically signed by Danii Shea P.A.-C 06/17/2016:52)
--- NOTE | 2016-06-17 23:52 | ED DISCHARGE INSTRUCTIONS ---
Patient: BREANNA HARMON General Instructions [facility] VisitID: [id number] [address] [place] [address] 20y, F Registration Date/Time: 06/17/2016 Anxiety reaction. INSTRUCTIONS Avoid stimulants (such as cigarettes, coffee, cold medicines, sinus medicines, street drugs). ([facility]: Address: [address] [place] [address] [facility]: Address: [address] [place] [address] ). Warnings: SEDATIVE MEDICATION: You were given sedative medication during your visit. Do not drive or operate dangerous machinery for 6 hours. Prescription Medications: Zofran (orally disintegrating tablets) 4 mg: take 1 orally every 6 hours for 3 days as needed for nausea. Dispense ten (10). No refill. Substitution is permissible. Ativan take 1 orally every 8 hours for 3 days as needed for anxiety. No refill. Substitution is permissible. (#9) Follow-up: Follow up with your doctor please establish Primary Care in three days. Understanding of the discharge instructions verbalized by patient and family. ADDITIONAL INFORMATION Stress Reaction Anxiety is the feeling we all get when we think something bad might happen. It is a normal response to stress and usually causes only a mild reaction. When anxiety becomes more severe, emotions may interfere with daily life. In some cases, you may not even be aware of what it is youre anxious about! During an anxiety reaction, you may feel like you are helpless, nervous, depressed or irritable. Your body may show signs of anxiety in many ways. You may experience dry mouth, shakiness, dizziness, weakness, trouble breathing, chest pressure, headache, nausea, diarrhea, tiredness, inability to sleep or sexual problems. Home Care: 1) Try to locate the sources of stress in your life. They may not be obvious! These may include: -- Daily hassles of life which pile up (traffic jams, missed appointments, car troubles, etc.) -- Major life changes, both good (new baby, job promotion) and bad (loss of job, loss of loved one) -- Overload: feeling that you have too many responsibilities and can't take care of all of them at once -- Feeling helpless, feeling that your problems are beyond what youre able to solve 2) Notice how your body reacts to stress. Learn to listen to your body signals. This will help you take action before the stress becomes severe. 3) When you can, do something about the source of your stress. (Avoid hassles, limit the amount of change that happens in your life at one time and take a break when you feel overloaded). 4) Unfortunately, many stressful situations cannot be avoided. It is necessary to learn HOW TO MANAGE STRESS better. There are many proven methods that will reduce your anxiety. These include simple things like exercise, good nutrition and adequate rest. Also, there are certain techniques that are helpful: relaxation and breathing exercises, visualization, biofeedback and meditation. For more information about this, consult your doctor or go to a local bookstore and review the many books and tapes available on this subject. Follow Up If you feel that your anxiety is not responding to self-help measures, contact your doctor or make an appointment with a counselor. Get Prompt Medical Attention if any of the following occur: -- Your symptoms get worse -- Chest pain or trouble breathing -- Severe headache not relieved by rest and mild pain reliever -- Rapid or irregular heartbeat, fainting Panic Attack A panic attack is an extreme fear reaction that comes on for no apparent reason. Symptoms may include pounding or racing heartbeat, shortness of breath, dizziness, weakness and sweating. There is usually a fear that something terrible will happen or that you may . The attack may last a few minutes up to a few hours. Between attacks things will seem quite normal. This condition has a psychological cause and can be treated with the help of a therapist or psychiatrist. Medication is often used and can be very helpful for this problem. Home Care: Try to identify the sources of stress in your life. It may not be obvious! These may include: Daily hassles of life which pile up (traffic jams, missed appointments, car troubles, etc.). Major life changes, both good (new baby, job promotion) and bad (loss of job, loss of loved one). Overload: feeling that you have too many responsibilities and can't take care of everything at once. Helplessness: feeling like your problems are too much for you to handle. Notice how your body reacts to stress. Learn to listen to your body signals so that you can take action before the stress becomes severe. When possible, AVOID or REDUCE THE CAUSE OF STRESS. Avoid hassles, limit the amount of change that is happening in your life at one time or take a break when you feel overloaded. Unfortunately, many stressful situations cannot be avoided. Therefore, it is necessary to LEARN HOW TO MANAGE STRESS better. There are many proven methods that work and will reduce your anxiety. These include simple things like exercise, good nutrition and adequate rest. Also, there are certain techniques that are helpful: relaxation and breathing exercises, visualization, biofeedback, meditation or simply taking some time-out to clear your mind. For more information about this, consult your doctor or go to a local bookstore and review the many books and tapes available on this subject. Follow Up with your doctor or a therapist as advised. Get Prompt Medical Attention if any of the following occur: Worsening of your symptoms to the point of feeling [id number] A change in the type of pain: if it feels different, becomes more severe, lasts longer, or begins to spread into your shoulder, arm, neck, jaw or back Shortness of breath or increased pain with breathing Increasing feeling of weakness or dizziness Fainting Cough with dark colored sputum (phlegm) or blood Fever of 100.4F (38C) or higher, or as directed by your healthcare provider Swelling, pain or redness in one leg Hyperventilation Syndrome Hyperventilation Syndrome is a condition in which you lose control of your breathing. You may find yourself breathing too fast and/or too deep. This can be triggered by pain, anxiety and emotional stress. If hyperventilation continues for more than a few minutes, it can lead to a number of frightening symptoms, such as: Numbness and tingling of the hands, feet and face Clenching of the fingers or toes Dizziness Feeling like you cannot get enough air Chest pains Fainting or feeling like you are going to faint Once these symptoms begin, it is often hard to stop them because they lead to a cycle of more anxiety and more hyperventilation. It is important to understand that this is not a life-threatening condition and it will pass once you are able to relax. Relaxation and stress management methods can be learned and practiced in advance. These can help in the event of a future attack. Home Care: 1) Rest today until feeling back to normal. 2) If symptoms return: Sit or lie down. Remember that what is happening to you is temporary and will pass. Use the relaxation methods you have learned. It is no longer recommended to breathe into a paper bag. Follow Up with your doctor or as directed by our staff if symptoms recur. Get Prompt Medical Attention if any of the following occur: Increasing shortness of breath Fever of 100.0 F (38 C) or higher, or as directed by your healthcare provider Coughing up blood Chest pain that is made worse with each breath Redness, pain or swelling of the leg Ringing in your ears, Severe headache Weakness or fainting Ondansetron Oral disintegrating tablet What is this medicine? ONDANSETRON (on MAYRA se tessa) is used to treat nausea and vomiting caused by chemotherapy. It is also used to prevent or treat nausea and vomiting after surgery. How should I use this medicine? These tablets are made to dissolve in the mouth. Do not try to push the tablet through the foil backing. With dry hands, peel away the foil backing and gently remove the tablet. Place the tablet in the mouth and allow it to dissolve, then swallow. While you may take these tablets with water, it is not necessary to do so. Talk to your benefit director regarding the use of this medicine in children. Special care may be needed. What side effects may I notice from receiving this medicine? Side effects that you should report to your doctor or health palliative care nurse practitioner as soon as possible: allergic reactions like skin rash, itching or hives, swelling of the face, lips, or tongue breathing problems dizziness fast or irregular heartbeat feeling faint or lightheaded, falls fever and chills swelling of the hands and feet tightness in the chest Side effects that usually do not require medical attention (report to your doctor or health palliative care nurse practitioner if they continue or are bothersome): constipation or diarrhea headache What may interact with this medicine? Do not take this medicine with any of the following medications: -apomorphine -cisapride -dofetilide -dronedarone -pimozide -thioridazine -ziprasidone This medicine may also interact with the following medications: -carbamazepine -phenytoin -rifampicin -tramadol -other medicines that prolong the QT interval (cause an abnormal heart rhythm) What if I miss a dose? If you miss a dose, take it as soon as you can. If it is almost time for your next dose, take only that dose. Do not take double or extra doses. Where should I keep my medicine? Keep out of the reach of children. Store between 2 and 30 degrees C (36 and 86 degrees F). Throw away any unused medicine after the expiration date. What should I tell my health care provider before I take this medicine? They need to know if you have any of these conditions: heart disease history of irregular heartbeat liver disease low levels of magnesium or potassium in the blood an unusual or allergic reaction to ondansetron, granisetron, other medicines, foods, dyes, or preservatives or trying to get breast-feeding What should I watch for while using this medicine? Check with your doctor or health palliative care nurse practitioner as soon as you can if you have any sign of an allergic reaction. Lorazepam Oral tablet What is this medicine? LORAZEPAM (denis A ze nely) is a benzodiazepine. It is used to treat anxiety. How should I use this medicine? Take this medicine by mouth with a glass of water. Follow the directions on the prescription label. If it upsets your stomach, take it with food or milk. Take your medicine at regular intervals. Do not take it more often than directed. Do not stop taking except on the advice of your doctor or health palliative care nurse practitioner. Talk to your benefit director regarding the use of this medicine in children. Special care may be needed. What side effects may I notice from receiving this medicine? Side effects that you should report to your doctor or health palliative care nurse practitioner as soon as possible: changes in vision confusion depression mood changes, excitability or aggressive behavior movement difficulty, staggering or jerky movements muscle cramps restlessness weakness or tiredness Side effects that usually do not require medical attention (report to your doctor or health palliative care nurse practitioner if they continue or are bothersome): constipation or diarrhea difficulty sleeping, nightmares dizziness, drowsiness headache nausea, vomiting What may interact with this medicine? barbiturate medicines for inducing sleep or treating seizures, like phenobarbital clozapine medicines for depression, mental problems or psychiatric disturbances medicines for sleep phenytoin probenecid theophylline valproic acid What if I miss a dose? If you miss a dose, take it as soon as you can. If it is almost time for your next dose, take only that dose. Do not take double or extra doses. Where should I keep my medicine? Keep out of the reach of children. This medicine can be abused. Keep your medicine in a safe place to protect it from theft. Do not share this medicine with anyone. Selling or giving away this medicine is dangerous and against the law. Store at room temperature between 20 and 25 degrees C (68 and 77 degrees F). Protect from light. Keep container tightly closed. Throw away any unused medicine after the expiration date. What should I tell my health care provider before I take this medicine? They need to know if you have any of these conditions: alcohol or drug abuse problem bipolar disorder, depression, psychosis or other mental health condition glaucoma kidney or liver disease lung disease or breathing difficulties myasthenia gravis Parkinson's disease seizures or a history of seizures suicidal thoughts an unusual or allergic reaction to lorazepam, other benzodiazepines, foods, dyes, or preservatives or trying to get breast-feeding What should I watch for while using this medicine? Visit your doctor or health palliative care nurse practitioner for regular checks on your progress. Your body may become dependent on this medicine, ask your doctor or health palliative care nurse practitioner if you still need to take it. However, if you have been taking this medicine regularly for some time, do not suddenly stop taking it. You must gradually reduce the dose or you may get severe side effects. Ask your doctor or health palliative care nurse practitioner for advice before increasing or decreasing the dose. Even after you stop taking this medicine it can still affect your body for several days. You may get drowsy or dizzy. Do not drive, use machinery, or do anything that needs mental alertness until you know how this medicine affects you. To reduce the risk of dizzy and fainting spells, do not stand or sit up quickly, especially if you are an older patient. Alcohol may increase dizziness and drowsiness. Avoid alcoholic drinks. Do not treat yourself for coughs, colds or allergies without asking your doctor or health palliative care nurse practitioner for advice. Some ingredients can increase possible side effects. You have been given the following additional information: Anxiety Reaction Panic Attack Hyperventilation Syndrome Ondansetron Oral disintegrating tablet Lorazepam Oral tablet (Electronically signed by Danii Shea P.A.-C 06/17/2016:52)
== END 2016-06-17 23:10 | disposition home or self-care (01) ==
LOC: ED SRH 21:53
DX: F41.1 Generalized anxiety disorder (principal)